=== PATIENT | female | born 1950 | race Caucasian/White ===

== ENCOUNTER 2017-07-26 05:33 | Day surgery (SDC) | payer OTHER ==
[2017-07-18 13:32] LABS: HEMATOCRIT 38.1 % (37.0-47.0); HEMOGLOBIN 13.4 gm/dL (12.0-15.0); MCH 32.4 pg (26.0-34.0); MCHC 35.2 g/dL (28.0-37.0); RBC 4.14 mil/uL (4.20-5.00); RDW 13.3 % (10.5-14.5); WBC 5.5 thou/uL (4.0-11.0)
[2017-07-18 13:34] LABS: URINE BILIRUBIN NEGATIVE (Negative); URINE BLOOD NEGATIVE (Negative); URINE CLARITY CLEAR; URINE COLOR YELLOW; URINE GLUCOSE-RANDOM* NEGATIVE (Negative); URINE KETONES NEGATIVE (Negative); URINE LEUKOCYTES-REFLEX NEGATIVE (Negative); URINE NITRITE-REFLEX NEGATIVE (Negative); URINE PROTEIN (DIPSTICK) NEGATIVE (Negative); URINE SPECIFIC GRAVITY 1.015 (1.005-1.035); URINE UROBILINOGEN 0.2 E.U./dl (0.2-1.0)
[2017-07-18 13:40] LABS: ALBUMIN 3.8 g/dL (3.4-5.0); CALCIUM 9.3 mg/dL (8.5-10.1); POTASSIUM 4.3 mmol/L (3.5-5.1)
[2017-07-26] VITALS (7 sets, daily range): BP systolic 115–129; BP diastolic 52–64
[~2017-07-26] VITALS: Ht 154.9 cm; Wt 68.0 kg
--- NOTE | ~2017-07-26 | EKG ---
[address] [employer] [place] [address] ELECTROCARDIOGRAM REPORT Name: PETER CARRANZA Room #: [facility].#: [id number] Admission: Attend Phys: Ney Hdz MD Discharge: Date of : 50 Report #: [id number] THIS REPORT FOR: //name// [facility] Test Date: 2017-07-18 Test Time: 12:39:58 Pat Name: PETER CARRANZA Department: Room: Gender: F Net Technical Architect: SIMRAN BERRIOS : 1950 Requested By: Ney Hdz Order Number: [id number] MD: Kedar Carranza Measurements Intervals [place] Rate: 52 P: 67 ND: 142 QRS: 2 QRSD: 92 T: 29 QT: 431 QTc: 401 Interpretive Statements Sinus rhythm Normal tracing No previous ECG available for comparison Electronically Signed On 07-19-2017 8:20:54 CDT by Kedar Carranza [email or web address] <ELECTRONICALLY SIGNED> By: Kedar Carranza MD, [facility] 07/19/17 0820 1239 1239 Kedar Carranza MD, FACC /EPI
--- NOTE | ~2017-07-26 | O ---
[facility] [place] [address] OPERATIVE REPORT Name: PETER CARRANZA Room #: 402-P [facility]..#: [id number] Admission: 07/26/17 Attend Phys: Ney Hdz MD Discharge: Date of : 50 Report #: [id number] THIS REPORT FOR: //name// CC: Kirby Hdz DATE OF SERVICE: 07/26/2017 PREOPERATIVE DIAGNOSIS: Right knee medial compartment osteoarthritis. POSTOPERATIVE DIAGNOSIS: Right knee medial compartment osteoarthritis. PROCEDURE: Right medial compartment arthroplasty using navigation system. SURGEON: Ney Hdz MD SALES REPRESENTATIVE TRAINEE: Kathryn Barrett PA-C INDICATIONS FOR SALES REPRESENTATIVE TRAINEE: Throughout the case, extensive retraction and manipulation of the knee was required. This was afforded to me by my grants assistant. ANESTHESIA: LMA with an adductor canal block. IMPLANTS: Kingston [employer] Nephew Stride size 1 femoral unicompartmental component, a size 2 tibia and a size 8 polyethylene. TOURNIQUET TIME: 86 minutes. ESTIMATED BLOOD LOSS: 25 mL. COMPLICATIONS: None. SPECIMENS: None. CONDITION UPON LEAVING THE OR: Stable. INDICATION FOR PROCEDURE: The patient is a 66-year-old female with severe right knee medial compartment osteoarthritis. She had failed conservative treatment for this. After discussion with her, she elected for right medial compartment arthroplasty. DESCRIPTION OF PROCEDURE: Risks, benefits, alternatives, complications were discussed in detail with the patient including but not limited to risk of anesthesia, risk of damage to nerves, arteries, blood vessels, risk for infection, bleeding, risk for continued knee pain and need for reoperation. Informed consent was obtained with the patient. Right knee was appropriately [facility] [address] [place] [address] OPERATIVE REPORT Name: PETER CARRANZA Room #: 402-P [facility] M.R.#: [id number] Admission: 07/26/17 Attend Phys: Ney Hdz MD Discharge: Date of : 50 Report #: [id number] marked in the preoperative holding area. Adductor canal block was placed by anesthesia. IV Ancef was given for preoperative antibiotics. She was brought to the operating room and placed in the supine position on the operating room table. LMA anesthesia was induced without complication. Tourniquet was placed on the right thigh. Right lower extremity was prepped and draped in normal sterile fashion. Timeout was performed properly identifying the patient and procedure as well as the instrumentation and implants. All in the operating room were in agreement. Right lower extremity was exsanguinated, tourniquet was inflated. Tourniquet time was 86 minutes. Standard midline approach to knee was made with 10 blade through skin. Dissection was taken down sharply to the fascia and deep flaps were developed medially and laterally. A medial parapatellar arthrotomy was then made and the knee was inspected. There was extensive medial compartment osteoarthritis. The lateral compartment and patellofemoral compartments were well maintained. It was decided to proceed with unicompartmental arthroplasty. The tibial and femoral pins were then placed percutaneously and the femur and tibia for the Navio robot assist guide system. The hip center was mapped out using the Navio. The ends of the medial femur and tibia were then mapped out using the Navio system and a operative plan was formulated using the computer navigation system. The bur was then used to bur off the medial femoral condyle as well as the medial tibial plateau. The tibia was sized, found to be a size 2. Size 2 tibial trial was placed and a size 1 femoral trial was placed with an 8 polyethylene spacer. This was found to have good fit and range of motion with good balance throughout range of motion. Trial components were removed. Bony ends were thoroughly irrigated with normal saline and a final size 2 tibia and a size 1 Stride femoral component were placed using standard cementation techniques. While the cement cured, the periarticular injection consisting of morphine, ropivacaine, epinephrine and Toradol was placed around the knee joint capsule. After the cement cured, tourniquet was deflated. Hemostasis was obtained with Bovie cautery. A final size 8 polyethylene was placed. A gram of vancomycin was placed deep in the joint. Fascia was closed with 0 Vicryl, skin was closed with 2-0 Vicryl, 3-0 Monocryl. Dermabond and a CORINA dressing was applied. The patient tolerated this procedure well and went to recovery room under care of anesthesia postoperatively. By: [id number] Ney Hdz MD /mary
[~2017-07-26 05:33] MED LIST: CENTRUM SILVER1 EAC4 PO; LISINOPRIL-HCT1 EAC1 PO; LOPRESSOR50 PO; MELATONIN5 M1 PO; NORVASC5 MG PO; PRAVACHOL20 MG PO; SYNTHROID88 MCG PO
[2017-07-26] MEDS ORDERED: PERCOCET PO (13:53)
[2017-07-26] MEDS ORDERED: MS CONTIN15 MG PO (13:53)
[2017-07-26] MEDS ORDERED: TRI-BUFFERED A325 M1 PO (13:53)
[2017-07-26] MEDS ORDERED: NEURONTIN 300300 M1 PO (13:54)
[2017-07-26] MEDS ORDERED: KEFLEX500 M1 PO (13:54)
== END 2017-07-26 16:00 | disposition home or self-care (01) ==
LOC: OR 05:33 → TBA 05:34 → 4N 10:45 → OR 11:30 → ENTRNSPT 15:56 → EDTRNSPTSTS 15:57 → OR 16:00
PROVIDERS: Orthopaedic Surgery
DX: M17.11 Unilateral primary osteoarthritis, right knee (principal); I10 Essential (primary) hypertension; E03.9 Hypothyroidism, unspecified; E78.5 Hyperlipidemia, unspecified; Z90.710 Acquired absence of both cervix and uterus; Z79.899 Other long term (current) drug therapy; Z88.8 Allergy status to other drugs, medicaments and biological substances; Z79.891 Long term (current) use of opiate analgesic; Z90.49 Acquired absence of other specified parts of digestive tract; Z98.890 Other specified postprocedural states
CPT/HCPCS: 27446; C1776

== ENCOUNTER → 2020-08-20 | Outpatient (CLI) | payer OTHER ==
[~2020-08-20] MED LIST changes: +ASPIRIN EC81 M1 PO; +HM CALCIUM-MAG1 EACH PO; +KEFLEX500 M1 PO; +LEVO-T75 MCG PO; +LEXAPRO 10 MG T10 M1 PO; +LOSARTAN-HCTZ1 EAC2 PO; +MS CONTIN15 MG PO; +NAPROSYN500 M1 PO; +NEURONTIN 300300 M1 PO; +PERCOCET PO; +PRAVACHOL 20 MG20 M1 PO; -PRAVACHOL20 MG PO; +PROBIOTIC1 EAC7 PO; +PROTONIX40 M2 PO; +TRI-BUFFERED A325 M1 PO; +TYLENOL EXTRA500 MG PO; +VALTREX 500 MG500 M1 PO
[2020-08-20 13:13] LABS: URINE BILIRUBIN NEGATIVE (Negative); URINE BLOOD NEGATIVE (Negative); URINE CLARITY CLEAR; URINE COLOR YELLOW; URINE GLUCOSE-RANDOM* NEGATIVE (Negative); URINE KETONES NEGATIVE (Negative); URINE LEUKOCYTES-REFLEX NEGATIVE (Negative); URINE NITRITE-REFLEX NEGATIVE (Negative); URINE PROTEIN (DIPSTICK) NEGATIVE (Negative); URINE UROBILINOGEN 0.2 E.U./dl (0.2-1.0)
[2020-08-20 13:20] LABS: HEMATOCRIT 37.5 % (37.0-47.0); HEMOGLOBIN 12.3 gm/dL (12.0-15.0); MCH 32.5 pg (26.0-34.0); MCHC 32.7 g/dL (28.0-37.0); MCV 99.4 fL (80.0-100.0); RBC 3.77 mil/uL (4.20-5.00); RDW 15.6 % (10.5-14.5); WBC 7.5 thou/uL (4.0-11.0)
--- NOTE | 2020-08-20 13:24 | EKG ---
[place] [address] [employer] [place] [address] ELECTROCARDIOGRAM REPORT Name: PETER CARRANZA Room #: ALEX Sung#: [id number] Admission: 08/20/20 Attend Phys: Nataly Calderon DO Discharge: Date of : 50 Report #: [id number] [facility] Test Date: 2020-08-20 Test Time: 13:17:50 Pat Name: PETER CARRANZA Department: Room: Gender: F Valver: AMBROCIO : 1950 Requested By: Ney Hdz Order Number: [id number] MD: Herbert Dalton Measurements Intervals [place] Rate: 55 P: 58 [place]: 145 QRS: -6 QRSD: 105 T: 6 QT: 457 QTc: 438 Interpretive Statements Sinus rhythm Left ventricular hypertrophy Borderline T abnormalities, inferior leads Compared to ECG 07/18/2017 12:39:58 Left ventricular hypertrophy now present T-wave abnormality now present Electronically Signed On 08-20-2020 13:24:02 CDT by Herbert Dalton [email or web address] <ELECTRONICALLY SIGNED> By: Herbert Dalton MD, [facility] 08/20/20 1324 16 16 Herbert Dalton MD, FACC /EPI
[2020-08-20 13:27] LABS: INR 0.94; PROTIME 10.3 Seconds (10.5-12.1)
[2020-08-20 13:28] LABS: ALBUMIN 3.9 g/dL (3.4-5.0); CALCIUM 9.2 mg/dL (8.5-10.1); CREATININE 1.2 mg/dL (0.6-1.0); POTASSIUM 4.5 mmol/L (3.5-5.1)
== END ==
LOC: PAC 12:34
PROVIDERS: Orthopaedic Surgery; ATTEND Student in an Organized Health Care Education/Training Program
DX: Z01.812 Encounter for preprocedural laboratory examination (principal); Z20.822 Contact with and (suspected) exposure to COVID-19; I49.9 Cardiac arrhythmia, unspecified; I51.7 Cardiomegaly

== ENCOUNTER 2020-08-25 12:23 | Observation (INO) | payer OTHER ==
[~2020-08-25] VITALS: Ht 154.9 cm; Wt 72.6 kg
[2020-08-25 14:05] VITALS: BP 152/59
--- NOTE | 2020-08-25 18:07 | NUR ---
ASSUMED CARE OF PT AT 1700 HRS THIS AFTERNOON. PT HAS HAD TOTAL HIP REPLACEMENT ON LEFT SIDE. PT HAS CDI CORINA DRESSING ON LEFT HIP WITH DRAIN . SKIN INTACT W/D/ATR, LUNGS ARE CLEAR IN ALL SAENZ, DISTAL PULSES STRONG AND PRESENT BILAT, LUNGS CLEAR ALL SAENZ, HOARSENESS TO VOICE WITH NO COUGH. ABD SOFT NONTENDER, BOWEL SOUNDS ACTIVE. ASSESSMENTS OTHERWISE UNREMARKABLE. IV IN RIGHT WRIST WITH D5.45NS AT 100ML/HR CALL LIGHT AND OTHER NEEDS ARE WITHIN REACH, MEDS GIVEN SCHEDULED AND NEEDED.
[2020-08-25 19:12] VITALS: BP 117/60
--- NOTE | 2020-08-26 00:44 | NUR ---
ASSESSMENT COMPLETED. PT IS USING BEDPAN AND VOIDING OKAY. CORINA DRSG TO LEFT HIP, ICE STEVEN APPLIED. PT GETSMOSTLY WHEN MOVING. SCDS AND TEDS IN PLACE. SHE IS SWALLOWING HER MEDS WITH NO ISSUES OF NAUSEA OR VOMITING. AFEBRILE. GOOD CSM TO LEFT FOOT. CALLS APPROPRIATELY WITH NEEDS.
[2020-08-26 03:53] VITALS: BP 132/64
[2020-08-26 05:28] LABS: HEMATOCRIT 30.5 % (37.0-47.0); HEMOGLOBIN 10.5 gm/dL (12.0-15.0); MCH 33.7 pg (26.0-34.0); MCHC 34.3 g/dL (28.0-37.0); MCV 98.4 fL (80.0-100.0); RBC 3.11 mil/uL (4.20-5.00); RDW 15.1 % (10.5-14.5); WBC 8.8 thou/uL (4.0-11.0)
[2020-08-26 08:22] VITALS: BP 137/64
--- NOTE | 2020-08-26 09:10 | NUR ---
ASSESSMENT: CM REVIEWED CHART AND MET WITH PATIENT AND HER SPOUSE AT THE BEDSIDE. PT IS S/P TOTAL HIP REPLACEMENT. PT REPORTS THAT SHE LIVES AT HOME WITH HER IN A HOUSE. PT REPORTS HAVING ABOUT 4 STEPS WITH A HANDRAIL TO ENTER THE HOME. PT REPORTS NO STEPS ONCE INSIDE. PT REPORTS ALREADY HAVING A FWW AND HAS A SHOWER CHAIR. PT REPORTS THAT SHE HAS OUTPATIENT THERAPY ALREADY ARRANGED IN [facility] THIS AFTERNOON. CM DISCUSSED THERAPY WILL SEE HER THIS AM AND CLEAR HER OR SHE MAY NEED TO RESCHEDULE PENDING HER PROGRESS. PT REPORTS THAT SHE DOES NOT ANTICIPATE HAVING ANY NEEDS FROM CM. CM WILL CONTINUE TO FOLLOW TO ASSIST NEEDED.
--- NOTE | 2020-08-26 10:18 | NUR ---
ASSUMED PT CARE AROUND 0700. PT ALERT X ORIENTED X 4. ON ROOM AIR. TOTAL HIP REPLACEMENT DONE YESTERDAY. PICCO DRESSING/ ICE PACKS IN PLACE.SCDS/TEDS ON, NO EDEMA, GOOD PULSES. IV RT WRIST/D5 HALF NS RUNNING AT 100MLS/HR. NO C/O NAUSES/VOMITING. WORKED WELL WITH PHYSICAL THERAPY. PAIN OF 5 NOTE, PAIN CONTROLLED BY PAIN MEDS. FALL PRECAUTION IN PLACE. CALL LIGHT IN REACH. WILL CONTINUE TO MONITOR.
[2020-08-26 11:49] VITALS: BP 137/64
[2020-08-26 11:51] VITALS: BP 137/64
--- NOTE | 2020-08-28 08:25 | O ---
[facility] [place] [address] OPERATIVE REPORT Name: PETER CARRANZA Room #: 440-P [facility] Jadyn Sung#: [id number] Admission: 08/25/20 Attend Phys: Ney Hdz MD Discharge: 08/26/20 Date of : 50 Report #: [id number] THIS REPORT FOR: cc: Kirby Jon MD, Jonathan MD Abraham,Ney Lucero MD ~ DOC #: [id number] Ney Hdz MD DATE OF SERVICE: 08/25/2020 PREOPERATIVE DIAGNOSIS: Left hip osteoarthritis. POSTOPERATIVE DIAGNOSIS: Left hip osteoarthritis. PROCEDURE: Left total hip arthroplasty. SURGEON: Ney Hdz MD BIRD TRAPPER: Kathryn Barrett PA-C INDICATION FOR BIRD TRAPPER: Throughout the case extensive retraction, manipulation of the hip including dislocation and reduction was required. This was afforded to me by my medical technician assistant. ANESTHESIA: LMA. IMPLANTS: Kingston [employer] Nephew size 12 high offset Synergy press-fit stem, a size 48 R3 acetabular cup with 1 acetabular screw and a size 32+0 cobalt chrome head as well as a single cord cable around the proximal femur for prophylactic fixation. ESTIMATED BLOOD LOSS: 150 mL. COMPLICATIONS: None. SPECIMENS: None. CONDITION UPON LEAVING THE OR: Stable. INDICATIONS FOR PROCEDURE: The patient is a 69-year-old female with severe left hip osteoarthritis. She had failed conservative measures for this and after discussion with her, she elected for left total hip arthroplasty. Risks, benefits, alternatives, and complications were discussed in detail with the patient including but not limited to risk of anesthesia, risk of damage to nerves, arteries, blood vessels, risk for infection, bleeding, risk for [facility] [address] [place] [address] OPERATIVE REPORT Name: PETER CARRANZA Room #: 440-P [facility] Jadyn Sung#: [id number] Admission: 08/25/20 Attend Phys: Ney Hdz MD Discharge: 08/26/20 Date of : 50 Report #: [id number] continued hip pain, leg length discrepancy, instability and need for reoperation. DESCRIPTION OF PROCEDURE: Informed consent was obtained from the patient. Left hip was appropriately marked in the preoperative holding area. IV Ancef was given for preoperative antibiotics. She was brought to the operating room and placed in supine position on the operating table. LMA anesthesia was induced without complication. She was then placed in the right lateral decubitus position with the left hip uppermost. Left hip and lower extremity were prepped and draped in normal sterile fashion. Timeout was performed properly identifying the patient and procedure as well as the instrumentation and implants. All in the operating room in agreement. Standard posterior approach to the hip was made with 10 blade through the skin. Dissection was taken down to the fascia with Bovie cautery and deep flaps were developed in the anterior and posterior with Bermudez elevator. Fresh 10 blade was used to make an incision in the IT band and this was taken proximally and distally with curved Bernal scissor. Charnley retractor was placed. Trochanteric bursa was taken down with Bovie cautery. Piriformis tendon was identified, tagged and taken down with Bovie. Short external rotators were also taken down with Bovie cautery. Capsulotomy was made and capsule ends were tagged for later repair. The hip was dislocated and there was extensive osteoarthritic change in the femoral head. Femoral neck cut was made 1 cm proximal to the lesser trochanter based on preoperative templating and the femoral head was removed. Deep acetabular retractors were placed. Labrum was removed sharply. Pulvinar was removed with Bovie cautery. Acetabulum was then sequentially reamed up to a size 48, at which point there was excellent bleeding cancellous bone. A size 47 trial cup was placed, found to have a good fit. Final size 48 R3 acetabular cup was placed and seated one acetabular screw was placed for backup fixation and a polyethylene liner for a 32 head was placed. Attention was then turned to the femur. This was reamed and broached up to a size 12, at which point the size 12 broach was stable, was trialed with a high offset neck and a 32+0 head. Hip was reduced, taken through range of motion, found to be stable, found to have equal leg length. Hip was dislocated. Broach was removed. A single cord cable was placed circumferentially around the proximal femur just proximal to the lesser trochanter for prophylactic fixation and final size 12 high offset Synergy press-fit stem was placed and seated. This was trialed again with a 32+0 head. Hip was reduced, taken through range of motion, found to be stable, found to have equal leg lengths. Hip was dislocated one last time and a final size 32+0 cobalt chrome head was placed. Hip was reduced, taken through range of motion, found to be stable, found to have equal leg lengths. The wound was thoroughly irrigated with normal saline. A periarticular injection consisting of morphine, ropivacaine, epinephrine, Toradol was placed around the hip joint capsule. A gram of vancomycin was placed deep in the joint fascia. The capsule and piriformis were repaired with 0 FiberWire. Fascia was closed with 0 Vicryl. Skin was closed with 2-0 Vicryl, skin william and a CORINA dressing was applied. [address] [place] [address] OPERATIVE REPORT Name: PETER CARRANZA Room #: 440-P [facility] Jadyn MAriel#: [id number] Admission: 08/25/20 Attend Phys: Ney Hdz MD Discharge: 08/26/20 Date of : 50 Report #: [id number] The patient tolerated this procedure well and went to recovery room under care of anesthesia postoperatively. Ney Hdz MD SMA/ALL <ELECTRONICALLY SIGNED> By: Ney Hdz MD 08/28/20 0825 1522 1608 Ney Hdz MD /nt
== END 2020-08-26 12:15 | disposition home or self-care (01) ==
LOC: OR → PRE 12:38 → TBA 12:38 → OR 12:38 → 4S 12:38 → OR 13:24 → 4S 16:15
PROVIDERS: ADMIT Orthopaedic Surgery; ATTEND Orthopaedic Surgery
DX: M16.12 Unilateral primary osteoarthritis, left hip (principal); M17.11 Unilateral primary osteoarthritis, right knee; Z79.899 Other long term (current) drug therapy
CPT/HCPCS: 10102; 50010; 50101; 50382; 50414; 51412; 53000; 53078; 53367; 54118; 56524; 56527; 56528; 56530; 57095; 57103